=== PATIENT | female | born 1960 | race Caucasian/White ===

== ENCOUNTER → 2023-02-02 | Outpatient (CLI) | payer OTHER | END | disposition home or self-care (01) | LOC: EDBD 11:18 → RAD 11:18 | DX: M25.561 Pain in right knee (principal); M79.671 Pain in right foot; M79.672 Pain in left foot ==

== ENCOUNTER → 2023-02-06 | Outpatient (CLI) | payer OTHER | END | disposition home or self-care (01) | LOC: RAD 10:41 | PROVIDERS: ATTEND Orthopaedic Surgery | DX: M54.59 Other low back pain (principal) ==

== ENCOUNTER 2023-12-11 07:34 | Outpatient (CLI) | payer OTHER | END 2023-12-11 07:35 | disposition home or self-care (01) | LOC: NUCLEAR 07:34 | PROVIDERS: ATTEND Specialist | DX: E22.0 Acromegaly and pituitary gigantism (principal) | CPT/HCPCS: 78072; A9500 ==